=== PATIENT | male | born 1960 | race Asian ===

== ENCOUNTER → 2021-05-04 | Outpatient (CLI) | payer OTHER | END | disposition home or self-care (01) | LOC: RADPV 11:40 | PROVIDERS: ATTEND Internal Medicine | DX: R76.11 Nonspecific reaction to tuberculin skin test without active tuberculosis (principal) | CPT/HCPCS: 71045 ==

== ENCOUNTER 2024-12-08 17:14 | Emergency (ER) | payer OTHER ==
[~2024-12-08] VITALS: Ht 175.3 cm; Wt 84.1 kg
[2024-12-08 17:23] VITALS: BP 122/77; PULSE 73; RESP 18; TEMP 97.9; O2SAT 100
[2024-12-08] MEDS ORDERED: LOSA-382 PO (17:27)
[2024-12-08] MEDS ORDERED: AMLO-258 PO (17:27)
[2024-12-08] MEDS: BACITRACIN 28 GM OINTMENT TP ONE (17:36)
[2024-12-08] MEDS: ACETAMINOPHEN 500 MG TABLET PO ONE (17:36)
== END 2024-12-08 21:30 | disposition home or self-care (01) ==
LOC: EMS 17:14
DX: S60.511A Abrasion of right hand, initial encounter (principal); Z79.899 Other long term (current) drug therapy; Z88.1 Allergy status to other antibiotic agents; Z90.49 Acquired absence of other specified parts of digestive tract; X58.XXXA Exposure to other specified factors, initial encounter; Y93.89 Activity, other specified; Y92.89 Other specified places as the place of occurrence of the external cause; Y99.0 Civilian activity done for income or pay
CPT/HCPCS: 99283